=== PATIENT | male | born 2000 | race Caucasian/White ===

== ENCOUNTER 2023-12-27 20:00 | Emergency (ER) | payer SELFPAY ==
[~2023-12-27] VITALS: Ht 170.2 cm; Wt 70.3 kg
[2023-12-27 20:24] VITALS: BP 119/86; PULSE 107; RESP 20; TEMP 99; O2SAT 97
[2023-12-27] MEDS ORDERED: PROM118S5 PO (21:57)
[2023-12-27] MEDS ORDERED: BENZ-300 PO (21:57)
[2023-12-27] MEDS ORDERED: IBUP-2213 PO (21:57)
[2023-12-27] MEDS ORDERED: PSEU-370 PO (21:57)
[2023-12-27] MEDS: DEXAMETHASONE 10 MG/ML VIAL IM ONE (22:01)
[2023-12-27 22:06] VITALS: BP 119/86; PULSE 107; RESP 20; TEMP 99; O2SAT 97
== END 2023-12-27 22:06 | disposition home or self-care (01) ==
LOC: MED 20:00
DX: J06.9 Acute upper respiratory infection, unspecified (principal); J02.9 Acute pharyngitis, unspecified; R03.0 Elevated blood-pressure reading, without diagnosis of hypertension; Z79.899 Other long term (current) drug therapy
CPT/HCPCS: 87081; 96372; 99283; J1100